=== PATIENT | female | born 1970 | race Two or more races ===

== ENCOUNTER 2024-07-14 20:37 | Emergency (ER) | payer MEDICAID, SELFPAY ==
--- NOTE | 2024-07-14 20:50 | EKG_ITS ---
[facility] Test Date: 2024-07-14 Pat Name: ANDREW JONES Department: Room: - Gender: Female [employer]: : 1970 Requested By: Avel Pro Order Number: [id number] Reading MD: Avel Pro Measurements Intervals [place] Rate: 86 P: 28 WI: 135 QRS: -30 QRSD: 81 T: 21 QT: 355 QTc: 426 Interpretive Statements SINUS RHYTHM LOW QRS VOLTAGE IN PRECORDIAL LEADS [QRS DEFLECTION < 1.0 mV IN CHEST LEADS] POSSIBLE ANTERIOR MYOCARDIAL INFARCTION , PROBABLY OLD [30 ms Q WAVE IN V3/V4, OR R < 0.2 mV IN V4] Compared to ECG 05/13/2023 02:30:55 Sinus tachycardia no longer present Left anterior fascicular block no longer present Myocardial infarct finding still present /store/S0/[id number]/ecg/[id number].pdf
[2024-07-14 21:37] VITALS: BP 159/91; PULSE 83; RESP 18; TEMP 37.1; O2SAT 95; BMI 32.9
--- NOTE | 2024-07-14 22:05 | EDRME_ITS ---
Rapid Medical Screening Exam [facility] Arrival date/time: 07/14/24 20:37 53F with history of migraines, HTN, and DM Presents to ED with 1 day of COOK, N/V and dizziness. Chief Complaint: General Adult/Misc Complain Vital signs: Vital Signs Temperature 98.7 F 07/14/24 21:37 Pulse Rate 83 07/14/24 21:37 Respiratory Rate 18 07/14/24 21:37 Blood Pressure 159/91 H 07/14/24 21:37 Pulse Oximetry (%) 95 07/14/24 21:37 Oxygen Delivery Method Room Air 07/14/24 21:37
--- NOTE | 2024-07-14 22:10 | XR_ITS ---
Examination: CT brain head without contrast. 2-D sagittal coronal reconstructions Date and time of exam:July 06, 2024 1001 hrs. Indications: Headaches several years with dizziness and blurred vision today CTDI: vol (mGy):51.4 DLP: (mGycm):1061 Technique: Multiple CT axial sections of the brain have been obtained, 5 mm slice thickness. Contrast has not been administered. 2-D sagittal, coronal reconstructions have been obtained Low dose protocols were performed. One or more of the following dose reduction techniques were used; automated exposure control, adjustment of the mA and/or KV according to patient size, use of iterative reconstruction technique. Findings: No significant ventricular enlargement. Intra-axial or extra-axial hemorrhage density is not seen. No mass effect or midline shift Basal cisterns are not remarkable. Fourth ventricle is midline. Cranial vault intact. Impression: Negative for acute hemorrhage, mass effect or midline shift If symptoms persist, consider elective brain MRI follow-up
[2024-07-14 22:54] LABS: Basophils # (Auto) 0.1 Thou/mm3 (0.0-0.2); Basophils % (Auto) 1 % (0-2.5); Eosinophils # (Auto) 0.3 Thou/mm3 (0.0-0.5); Eosinophils % (Auto) 2 % (0-10); Hematocrit 39.5 % (36.0-46.0); Hemoglobin 13.6 g/dL (12.0-16.0); Immature Granulocytes % (Auto) 0 % (0-0); Immature Granulocytes Auto 0.05 Thou/mm3 (0.00-0.00); Lymphocytes # (Auto) 2.9 Thou/mm3 (1.0-4.8); Lymphocytes % (Auto) 21 % (10-50); Mean Corpuscular HGB Conc 34.4 g/dl (31.0-37.0); Mean Corpuscular Hemoglobin 28.8 pg (25.0-35.0); Mean Corpuscular Volume 84 fL (80-100); Monocytes # (Auto) 0.7 Thou/mm3 (0.0-0.8); Monocytes % (Auto) 5 % (0-12); Neutrophils # (Auto) 9.8 Thou/mm3 (1.8-7.7); Neutrophils % (Auto) 71 % (37-80); Nucleated Red Blood Cell % 0 /100 WBC (0); Platelet Count 343 Thou/mm3 (140-440); Red Blood Count 4.72 Miln/mm3 (4.00-5.20); White Blood Count 13.8 Thou/mm3 (3.6-11.0)
[2024-07-14 23:14] LABS: Alanine Aminotransferase 22 U/L (10-49); Albumin, Serum 4.7 gm/dL (3.5-5.0); Anion Gap 9 (7-16); Aspartate Amino Transferase 17 U/L (0-34); BUN/Creatinine Ratio 20 Ratio (12-20); Bilirubin,Total 0.3 mg/dL (0.3-1.2); Blood Urea Nitrogen 22 mg/dL (9-23); Calcium 10.2 mg/dL (8.3-10.6); Carbon Dioxide 27.1 mMol/L (20.0-31.0); Chloride 101 mMol/L (98-107); Creatinine (Component) 1.1 mg/dL (0.6-1.3); Estimated Creatinine Clearance 65.5 mL/min (>60); Glucose 400 mg/dL (74-106); Osmolality,Calculated 294 (275-295); Potassium 4.3 mMol/L (3.4-5.1); Sodium 137 mMol/L (136-145); Total Protein 7.5 gm/dL (5.7-8.2); Troponin I < 0.002 ng/mL (0.0-0.045); eGFR > 60 See Note
[2024-07-14 23:15] LABS: Albumin/Globulin Ratio 1.7 (1.2-2.2); Alkaline Phosphatase 146 U/L (46-116); Calcium (Corrected) 10.2 mg/dL (8.5-10.1); Globulin 2.8 gm/dL (2.3-3.5); Lipase 46 U/L (12-53)
[2024-07-14 23:54] VITALS: BP 123/69; PULSE 76; RESP 18; TEMP 36.8; O2SAT 98
[2024-07-15] MEDS: SUMAtriptan INJ 6 MG/0.5 ML VIAL SC (00:01)
[2024-07-15] MEDS: METOCLOPRAMIDE 5 MG TABLET 10 MG PO (00:02)
--- NOTE | 2024-07-15 00:13 | PD.EDADULT ---
ED General RME/HPI General Chief complaint: General Adult/Misc Complain Stated complaint: DIZZINESS, BLURRY VISION, LETHARGIC/WEAK Time Seen by Provider: 07/14/24 22:36 Arrival date/time: 07/14/24 20:37 Limitations: no limitations RME / HPI RME / HPI narrative: 07/14/24 20:37 53F with history of migraines, HTN, and DM Presents to ED with 1 day of COOK, N/V and dizziness. ------- Dr. Salazar's Main ED Evaluation: 53yo female with a history of HTN, DM presents to the ED for a chief complaint of dizziness. Patient states she felt that her blood pressure was high earlier today, reporting she took her last dose of her HTN medication today. She states she went to the clinic, but they were closed. She states she started to feel dizzy and had 1 nonbloody emetic episode and was concerned, so she came in for evaluation. She reports having a posterior headache, which is normal for her when her blood pressure is high. She denies any vision changes, weakness, numbness, chest pain, shortness of breath or any other associated symptoms. No known allergies. Related Data Home Medications ?Medication ?Instructions ?Recorded ?Confirmed xajrjoc-nihlqazwczavb-[id number] 250 1 tab PO QDAY PRN Headache 10/09/21 10/09/21 mg-250 mg-65 mg tablet (Excedrin Migraine) lisinopril 10 mg tablet 10 mg PO QDAY 10/09/21 10/09/21 Previous Rx's ?Medication ?Instructions ?Recorded glimepiride 1 mg tablet 1 mg PO QAM #30 tabs 10/09/21 metformin 500 mg tablet 500 mg PO BID #30 tabs 10/09/21 Allergies Allergy/AdvReac Type Severity Reaction Status Date / Time No Known Allergies Allergy Verified 07/14/24 20:42 Review of Systems Review of Systems Systems Reviewed: All systems reviewed, normal except as documented ED Exam General Limitations: Present no limitations General appearance: Present alert and in no apparent distress Head Head exam: Present atraumatic Eye Eye exam: Present normal appearance, PERRL and EOMI ENT ENT exam: Present normal exam, normal oropharynx and mucous membranes moist Neck Neck exam: Present normal inspection, full ROM and trachea midline Chest Chest inspection: Present normal inspection and symmetric chest wall rise Respiratory Respiratory exam: Present normal lung sounds bilaterally Cardiovascular Cardiovascular exam: Present regular rate, normal rhythm and normal heart sounds Abdominal Exam Abdominal exam: Present soft and normal bowel sounds Extremities Exam Extremities exam: Present normal inspection and full ROM Back Exam Back exam: Present normal inspection and full ROM Neurological Exam Neurological exam: Present alert, oriented X3, CN II-XII intact and other (no weakness, no drift, no facial droop, normal speech, normal sensations) Psychiatric Psychiatric exam: Present normal affect and normal mood Skin Skin exam: Present warm, dry, intact and normal color Course Quality Measures none Orders Category Date Time Status Blood glucose [Bedside Blood Glucose] NOW Care 07/14/24 20:50 Active EKG (ED ONLY) *Do not use* NOW Care 07/14/24 20:[address] head/brain wo con Stat Exams 07/14/24 22:10 Completed EKG (ED Only) Stat Exams 07/14/24 20:50 Draft CBC Stat Lab 07/14/24 22:38 Completed Comprehensive Metabolic Panel Stat Lab 07/14/24 22:38 Completed Lipase Stat Lab 07/14/24 22:38 Completed Troponin I Stat Lab 07/14/24 22:38 Completed Metoclopramide [Reglan] Med 07/14/24 22:05 Discontinued 10 mg PO X1 ONE SUMAtriptan INJ [Imitrex Inj] Med 07/14/24 22:05 Discontinued 6 mg SC X1 ONE Vital Signs Vital signs: Vital Signs Temperature 98.7 F 07/14/24 21:37 Pulse Rate 83 07/14/24 21:37 Respiratory Rate 18 07/14/24 21:37 Blood Pressure 159/91 H 07/14/24 21:37 Pulse Oximetry (%) 95 07/14/24 21:37 Oxygen Delivery Method Room Air 07/14/24 21:37 [facility] Patient data External records reviewed:: [facility] previous records (Per chart review, patient was seen here on 05/13/23 for vertigo.) Clinical information provided by:: patient Social determinants that could affect healthcare access:: none Patient has the following chronic illnesses:: HTN, DM How is presenting disease/condition affected by chronic disease/condition?: uneffected by Evaluation data The following diagnostics were reviewed and interpreted by me:: lab results and EKG tracing(s) Lab and/or radiology exams considered but not ordered:: none Interpretation Summary: CBC is normal, Glucose is 400, Anion Gap is normal, according to my interpretation. EKG done at 2135, NSR, rate of 86, low voltage, ST-T changes in lead III and avF, poor R wave progression, no ST elevations or depressions, QTc: 398, similar to previous EKG done in 04/2023, according to my interpretation. --------- [facility] Report Signed Patient: ANDREW JONES Record#: [id number] Birthdate: 1970 Age/Sex: 53 / F Location: [facility] Attending Dr: Ordering Physician: Avel Pro PA-C Date of Service: 07/14/24 Procedure(s): CT head/brain wo con Accession Number(s): [id number] cc: Rupert Cheng MD; Avel Pro PA-C~ Examination: CT brain head without contrast. 2-D sagittal coronal reconstructions Date and time of exam:July 06, 2024 1001 hrs. Indications: Headaches several years with dizziness and blurred vision today CTDI: vol (mGy):51.4 DLP: (mGycm):1061 Technique: Multiple CT axial sections of the brain have been obtained, 5 mm slice thickness. Contrast has not been administered. 2-D sagittal, coronal reconstructions have been obtained Low dose protocols were performed. One or more of the following dose reduction techniques were used; automated exposure control, adjustment of the mA and/or KV according to patient size, use of iterative reconstruction technique. Findings: No significant ventricular enlargement. Intra-axial or extra-axial hemorrhage density is not seen. No mass effect or midline shift Basal cisterns are not remarkable. Fourth ventricle is midline. Cranial vault intact. Impression: Negative for acute hemorrhage, mass effect or midline shift If symptoms persist, consider elective brain MRI follow-up Dictated By: Rupert Cheng MD Signed By: <Electronically signed by Rupert Cheng MD in OV> 07/14/24 1934 Medications Medications considered but not ordered:: none Medication administrations:: Medication Administration History Discontinued Medications Metoclopramide HCl (Metoclopramide 5 Mg Tablet) 10 mg PO X1 ONE Stop: 07/14/24 22:06 Last Admin: 07/15/24 00:02 Dose: 10 mg Documented By: EF Sumatriptan Succinate (Sumatriptan Inj 6 Mg/0.5 Ml Vial) 6 mg SC X1 ONE Stop: 07/14/24 22:06 Last Admin: 07/15/24 00:01 Dose: 6 mg Documented By: EF see above Consultations Consultation(s) initiated? (list below): No Diagnosis Differential Diagnosis ED Complaint MDM: hypertensive urgency, hypertensive emergency, dehydration Most likely diagnosis given after review of the tests above:: Other DDx: electrolyte abnormality, noncompliance, vertigo Final Dx: See clinical impression below Admission Indicated Admission indicated?: not indicated Explain why admission is indicated or not indicated:: No criteria for admission. Admission Request Was there a request for admission?: No Disposition Plan Disposition Plan: Discharge Discharge Attestation Discharge Attestation: The patient and all family members were given an opportunity to ask questions and understood the discharge instructions. Discharge instructions specifically effects, indications for sooner follow up or return to the emergency department, and the expected course of current diagnosis. Patient condition: Stable Medical Decision Making Differential Diagnosis Differential Diagnosis: hypertensive urgency, hypertensive emergency, dehydration Lab Data 07/14/24 22:38 07/14/24 22:38 Labs: Lab Results 07/14/24 Range/Units 22:38 WBC 13.8 H (3.6-11.0) Thou/mm3 RBC 4.72 (4.00-5.20) Miln/mm3 Hgb 13.6 (12.0-16.0) g/dL Hct 39.5 (36.0-46.0) % MCV 84 (80-100) fL MCH 28.8 (25.0-35.0) pg MCHC 34.4 (31.0-37.0) g/dl RDW Std Deviation 40.0 (36.4-46.3) fL Plt Count 343 (140-440) Thou/mm3 Neut % (Auto) 71 (37-80) % Lymph % (Auto) 21 (10-50) % Parker % (Auto) 5 (0-12) % Eos % (Auto) 2 (0-10) % Baso % (Auto) 1 (0-2.5) % Neut # (Auto) 9.8 H (1.8-7.7) Thou/mm3 Lymph # (Auto) 2.9 (1.0-4.8) Thou/mm3 Parker # (Auto) 0.7 (0.0-0.8) Thou/mm3 Eos # (Auto) 0.3 (0.0-0.5) Thou/mm3 Baso # (Auto) 0.1 (0.0-0.2) Thou/mm3 Immature Gran # (Auto) 0.05 H (0.00-0.00) Thou/mm3 Absolute Nucleated RBC 0.00 (0.00-0.00) Thou/mm3 Immature Gran % 0 (0-0) % Nucleated RBC % 0 (0) /100 WBC Sodium 137 (136-145) mMol/L Potassium 4.3 (3.4-5.1) mMol/L Chloride 101 (98-107) mMol/L Carbon Dioxide 27.1 (20.0-31.0) mMol/L Anion Gap 9 (7-16) BUN 22 (9-23) mg/dL Creatinine 1.1 (0.6-1.3) mg/dL Estim Creat Clear Calc 65.5 (>60) mL/min eGFR > 60 (60 - ) See Note BUN/Creatinine Ratio 20 (12-20) Ratio Glucose 400 H (74-106) mg/dL Calculated Osmolality 294 (275-295) Calcium 10.2 (8.3-10.6) mg/dL Corrected Calcium 10.2 H (8.5-10.1) mg/dL Total Bilirubin 0.3 (0.3-1.2) mg/dL AST 17 (0-34) U/L ALT 22 (10-49) U/L Alkaline Phosphatase 146 H (46-116) U/L Troponin I < 0.002 (0.0-0.045) ng/mL Total Protein 7.5 (5.7-8.2) gm/dL Albumin 4.7 (3.5-5.0) gm/dL Globulin 2.8 (2.3-3.5) gm/dL Albumin/Globulin Ratio 1.7 (1.2-2.2) Lipase 46 (12-53) U/L Discharge Plan Prescriptions/Referrals Prescriptions/Med Rec: No Action lisinopril 10 mg Tablet 10 mg PO QDAY Excedrin Migraine 250-250-65 mg Tablet 1 tab PO QDAY PRN (Reason: Headache) metformin 500 mg tablet 500 mg PO BID Qty: 30 0RF glimepiride 1 mg tablet 1 mg PO QAM Qty: 30 0RF Rx Instructions: administer with breakfast Patient/Caregiver Discharge Instructions Print Language: Greenlandic
[2024-07-15 00:38] VITALS: BP 125/73; PULSE 75; RESP 15
== END 2024-07-15 00:40 | disposition home or self-care (01) ==
LOC: SERX 07-15 00:53
PROVIDERS: Physician Assistant; Emergency Provider Emergency Medicine; PCP Family Medicine
DX: R42 Dizziness and giddiness (principal); R51.9 Headache, unspecified; I10 Essential (primary) hypertension; E11.9 Type 2 diabetes mellitus without complications
CPT/HCPCS: 36415; 70450; 80053; 83690; 84484; 85025; 93005; 96372; 99284; J3030; A9270